=== PATIENT | female | born 1950 | race Hispanic/Latino ===

== ENCOUNTER 2017-05-07 06:57 | Day surgery (SDC) | payer MEDICARE, BC ==
[2016-08-14 08:46] VITALS: BMI 36.0
[2017-05-07] MEDS ORDERED: Simethicone 40 mg/0.6 ml Liquid (30 ml) ONE (07:49)
[2017-05-07] MEDS ORDERED: Propofol 10 mg/ml Inj (20 ML) ONE (08:59)
[2017-05-07] MEDS ORDERED: Lidocaine 1% Inj (20ml) ONE (08:59)
[2017-05-07] MEDS ORDERED: Sodium Chloride 0.9% 1,000 ML IV SCH (09:30)
[2017-05-07 10:21] VITALS: BP 131/72; PULSE 68; RESP 19; TEMP 97.9; O2SAT 98
== END 2017-05-07 11:02 | disposition home or self-care (01) ==
LOC: ENDO 06:57
PROVIDERS: ATTEND Internal Medicine Gastroenterology
DX: K21.0 Gastro-esophageal reflux disease with esophagitis (principal); K29.50 Unspecified chronic gastritis without bleeding; K29.80 Duodenitis without bleeding; K22.70 Barrett's esophagus without dysplasia; K44.9 Diaphragmatic hernia without obstruction or gangrene; I10 Essential (primary) hypertension; E78.5 Hyperlipidemia, unspecified
CPT/HCPCS: 43239; 88305; 88312; 88342; J2704; J7040 ×2

== ENCOUNTER 2017-11-05 07:29 | Day surgery (SDC) | payer MEDICARE, BC ==
[2017-10-28 14:08] VITALS: BMI 34.4
[2017-11-05 08:09] VITALS: TEMP 97.9
[2017-11-05] MEDS ORDERED: Propofol 10 mg/ml Inj (20 ML) ONE (09:19)
[2017-11-05] MEDS ORDERED: Sodium Chloride 0.9% 1,000 ML IV SCH (10:30)
[2017-11-05 15:03] VITALS: BP 117/63; PULSE 68; RESP 18; O2SAT 99
== END 2017-11-05 11:21 | disposition home or self-care (01) ==
LOC: ENDO 07:29
PROVIDERS: ATTEND Internal Medicine Gastroenterology
DX: K22.10 Ulcer of esophagus without bleeding (principal); K29.50 Unspecified chronic gastritis without bleeding; K44.9 Diaphragmatic hernia without obstruction or gangrene
CPT/HCPCS: 43239; 88305; 88312; 88342; J2001; J2704; J3010; J7040 ×2

== ENCOUNTER 2019-01-07 09:01 | Outpatient (CLI) | payer MEDICARE, BC | END 2019-01-07 09:02 | disposition home or self-care (01) | LOC: RAD 09:01 ==